=== PATIENT | male | born 1985 | race African-American/Black ===

== ENCOUNTER 2023-06-24 17:09 | Emergency (ER) | payer SELFPAY ==
[2023-06-24 20:25] VITALS: BP 105/60; RESP 18; TEMP 98.8; BMI 30.4
[2023-06-24 20:53] VITALS: PULSE 89
[2023-06-24] MEDS ORDERED: ALBUTEROL SO4 2.5/IPRATROPIUM 0.5 INH SOL 3 ML VIAL.NEB. NEB ONE ×2 (21:36)
[2023-06-24] MEDS ORDERED: predniSONE 20 MG TABLET (UD) PO ONE (22:10)
[2023-06-24] MEDS ORDERED: predniSONE 20 MG TABLET (UD) ONE (22:13)
== END 2023-06-24 22:20 | disposition home or self-care (01) ==
LOC: FER 17:09
PROC: 3E0F7GC Introduction of Other Therapeutic Substance into Respiratory Tract, Via Natural or Artificial Opening (ICD-10-PCS; principal; 2023-06-24)
DX: R06.02 Shortness of breath (principal); R06.2 Wheezing; R05.9 Cough, unspecified; J45.909 Unspecified asthma, uncomplicated; Z20.822 Contact with and (suspected) exposure to COVID-19
CPT/HCPCS: 0241U-QW; 99283-25

== ENCOUNTER 2023-07-10 14:58 | Inpatient (IN) | payer SELFPAY ==
[2023-07-10] MEDS ORDERED: methylPREDNISolone NA SUCC 125 MG/2 ML VIAL IVPUSH ONE (15:27)
[2023-07-10] MEDS ORDERED: MAGNESIUM SULF 50% (8.12 MEQ/2 ML-1 GM VIAL) IVPB ONE (15:27)
[2023-07-10] MEDS: ALBUTEROL SO4 2.5/IPRATROPIUM 0.5 INH SOL 3 ML VIAL.NEB. NEB SCH ×4 (15:30→16:30)
[2023-07-10] MEDS ORDERED: ALBUTEROL SO4 2.5/IPRATROPIUM 0.5 INH SOL 3 ML VIAL.NEB. NEB ONE (15:35)
[2023-07-10] MEDS ORDERED: methylPREDNISolone NA SUCC 125 MG/2 ML VIAL ONE (16:11)
[2023-07-10] MEDS ORDERED: MAGNESIUM SULFATE IN WATER 2 GM/50 ML IVPB IVPB ONE (16:12)
[2023-07-10 16:27] LABS: HEMATOCRIT 52.7 % (35.4-49); HEMOGLOBIN 17.3 G/dL (11.7-16.9); MCH 30.8 pg (25.7-33.7); MCHC 32.8 g/dl (32.0-35.9); MEAN CELL VOLUME 93.9 fl (80-96); MEAN PLT VOLUME 9.8 fl (7.5-11.1); PLATELET COUNT 238.3 10^3/uL (134-434); RBC 5.61 10^6/uL (4.00-5.60); RDW 14.7 % (11.9-15.9); WHITE BLOOD COUNT 6.2 10^3/uL (4.0-10.8)
[2023-07-10 16:32] LABS: INR 1.4 (0.83-1.09); PROTHROMBIN TIME (PATIENT) 16.2 SEC (9.7-13.0)
[2023-07-10 16:35] LABS: ACTIVATED PTT 28.9 SECONDS (25.2-36.5)
[2023-07-10 16:37] LABS: PLATELET ESTIMATE ADEQUATE
[2023-07-10 16:41] LABS: ALBUMIN 4.5 g/dl (3.4-5.0); ALK PHOS 95 U/L (45-117); ANION GAP 10 mmol/L (4-13); BILIRUBIN,TOTAL 0.7 mg/dl (0.2-1); CALCIUM 10.4 mg/dl (8.5-10.1); CHLORIDE 105 mmol/L (98-107); CO2 24 mmol/L (21-32); GLUCOSE,RANDOM 107 mg/dl (74-106); SGOT/AST 55 U/L (15-37); SGPT/ALT 97 U/L (7-52); SODIUM 139 mmol/L (136-145)
[2023-07-10 16:44] LABS: POTASSIUM 6.5 mmol/L (3.5-5.1)
[2023-07-10] MEDS ORDERED: SODIUM CHLORIDE 0.9% 500 ML INFUS.BAG IV ONE (17:14)
[2023-07-10 17:22] LABS: CALCIUM 9.7 mg/dl (8.5-10.1); CREATININE 0.9 mg/dl (0.6-1.3); POTASSIUM 5.1 mmol/L (3.5-5.1)
[2023-07-10 18:09] LABS: N-TERMINAL BNP 5635.7 pg/ml (5-125)
[2023-07-10] MEDS ORDERED: ALBUTEROL SO4 2.5/IPRATROPIUM 0.5 INH SOL 3 ML VIAL.NEB. NEB PRN (20:42)
[2023-07-10 21:41] VITALS: BMI 28.3
[2023-07-11] MEDS: methylPREDNISolone NA SUCC 40 MG/1 ML VIAL IVPUSH SCH ×4 (02:43→20:16)
[2023-07-11 08:58] LABS: CALCIUM 9.5 mg/dl (8.5-10.1); CREATININE 0.7 mg/dl (0.6-1.3); POTASSIUM 5.6 mmol/L (3.5-5.1)
[2023-07-11] MEDS: CEFTRIAXONE 500 MG in DEXTROSE 5%-WATER - 50 ML IVPB SCH (17:33)
[2023-07-11] MEDS: ALBUTEROL SO4 2.5/IPRATROPIUM 0.5 INH SOL 3 ML VIAL.NEB. NEB SCH ×2 (17:34→19:58)
[2023-07-11] MEDS: AZITHROMYCIN 500 MG TABLET PO SCH ×2 (17:35→17:36)
[2023-07-11] MEDS: SODIUM ZIRCONIUM CYCLOSILICATE (LOKELMA) 5 GM PACKET PO SCH (19:59)
[2023-07-11] MEDS: MONTELUKAST NA 10 MG TABLET PO SCH (21:30)
[2023-07-11] MEDS: BUDESONIDE/FORMETEROL FUMARATE 160/4.5 mcg INHALER IH SCH (21:36)
[2023-07-12] MEDS: methylPREDNISolone NA SUCC 40 MG/1 ML VIAL IVPUSH SCH ×4 (03:13→21:15)
[2023-07-12] MEDS: ENOXAPARIN NA (PORCINE) 40 MG/0.4 ML DISP.SYRIN SQ SCH (09:20)
[2023-07-12] MEDS: AZITHROMYCIN 500 MG TABLET PO SCH (09:21)
[2023-07-12] MEDS: ALBUTEROL SO4 2.5/IPRATROPIUM 0.5 INH SOL 3 ML VIAL.NEB. NEB SCH ×4 (09:21→21:14)
[2023-07-12] MEDS: SODIUM ZIRCONIUM CYCLOSILICATE (LOKELMA) 5 GM PACKET PO SCH (09:22)
[2023-07-12] MEDS: BUDESONIDE/FORMETEROL FUMARATE 160/4.5 mcg INHALER IH SCH ×2 (09:33→21:14)
[2023-07-12] MEDS: CEFTRIAXONE 500 MG in DEXTROSE 5%-WATER - 50 ML IVPB SCH (09:34)
[2023-07-12] MEDS: FUROSEMIDE 40 MG/4 ML INJECTABLE VIAL IVPUSH SCH (18:39)
[2023-07-12] MEDS: MONTELUKAST NA 10 MG TABLET PO SCH (21:15)
[2023-07-13] MEDS: methylPREDNISolone NA SUCC 40 MG/1 ML VIAL IVPUSH SCH ×4 (03:13→21:10)
[2023-07-13] MEDS: ALBUTEROL SO4 2.5/IPRATROPIUM 0.5 INH SOL 3 ML VIAL.NEB. NEB SCH ×4 (07:40→21:10)
[2023-07-13] MEDS: FUROSEMIDE 40 MG/4 ML INJECTABLE VIAL IVPUSH SCH (09:30)
[2023-07-13] MEDS: ENOXAPARIN NA (PORCINE) 40 MG/0.4 ML DISP.SYRIN SQ SCH (09:30)
[2023-07-13] MEDS: BUDESONIDE/FORMETEROL FUMARATE 160/4.5 mcg INHALER IH SCH ×2 (09:32→21:11)
[2023-07-13] MEDS: AZITHROMYCIN 500 MG TABLET PO SCH (09:34)
[2023-07-13] MEDS: CEFTRIAXONE 500 MG in DEXTROSE 5%-WATER - 50 ML IVPB SCH (11:00)
[2023-07-13] MEDS: MONTELUKAST NA 10 MG TABLET PO SCH (21:10)
[2023-07-14] MEDS: methylPREDNISolone NA SUCC 40 MG/1 ML VIAL IVPUSH SCH ×3 (03:03→17:21)
[2023-07-14 08:14] LABS: HEMATOCRIT 52.9 % (35.4-49); HEMOGLOBIN 16.7 G/dL (11.7-16.9); MCHC 31.5 g/dl (32.0-35.9); MEAN CELL VOLUME 95.1 fl (80-96); MEAN PLT VOLUME 9.4 fl (7.5-11.1); PLATELET COUNT 210.6 10^3/uL (134-434); RBC 5.56 10^6/uL (4.00-5.60); RDW 14.7 % (11.9-15.9); WHITE BLOOD COUNT 11.4 10^3/uL (4.0-10.8)
[2023-07-14 08:33] LABS: ALBUMIN 3.8 g/dl (3.4-5.0); BILIRUBIN,TOTAL 0.3 mg/dl (0.2-1); CALCIUM 9.7 mg/dl (8.5-10.1); CREATININE 0.7 mg/dl (0.6-1.3); MAGNESIUM 2.2 mg/dL (1.8-2.4); POTASSIUM 5.1 mmol/L (3.5-5.1)
[2023-07-14 09:28] LABS: N-TERMINAL BNP 1734.3 pg/ml (5-125)
[2023-07-14] MEDS: ALBUTEROL SO4 2.5/IPRATROPIUM 0.5 INH SOL 3 ML VIAL.NEB. NEB SCH ×4 (09:42→21:25)
[2023-07-14] MEDS: BUDESONIDE/FORMETEROL FUMARATE 160/4.5 mcg INHALER IH SCH ×2 (09:43→21:29)
[2023-07-14] MEDS: FUROSEMIDE 40 MG/4 ML INJECTABLE VIAL IVPUSH SCH (09:43)
[2023-07-14] MEDS: CEFTRIAXONE 500 MG in DEXTROSE 5%-WATER - 50 ML IVPB SCH (09:44)
[2023-07-14] MEDS: ENOXAPARIN NA (PORCINE) 40 MG/0.4 ML DISP.SYRIN SQ SCH (09:44)
[2023-07-14] MEDS ORDERED: FAMOTIDINE 20 MG TABLET PO SCH (10:00)
[2023-07-14] MEDS ORDERED: SODIUM ZIRCONIUM CYCLOSILICATE (LOKELMA) 5 GM PACKET PO SCH (14:15)
[2023-07-14] MEDS: MONTELUKAST NA 10 MG TABLET PO SCH (21:25)
[2023-07-14 22:38] VITALS: RESP 17
[2023-07-15 00:23] VITALS: BP 118/70; PULSE 62; TEMP 97.8
== END 2023-07-15 11:54 | disposition short-term general hospital (02) | DRG 194 ==
LOC: FER 14:58 → FM/S 18:41
PROVIDERS: ADMIT Internal Medicine; ATTEND Family Medicine
DX: I11.0 Hypertensive heart disease with heart failure (principal); I50.813 Acute on chronic right heart failure; J45.909 Unspecified asthma, uncomplicated; I27.81 Cor pulmonale (chronic); E87.5 Hyperkalemia; J47.9 Bronchiectasis, uncomplicated; J84.9 Interstitial pulmonary disease, unspecified; I47.20 Ventricular tachycardia, unspecified; I27.20 Pulmonary hypertension, unspecified
CPT/HCPCS: 0241U-QW; 36415; 71275-TC; 80048; 80053; 82550; 82553; 83735; 83880; 84132; 84484; 85027; 85610; 85730; 86038; 86431; 87070; 87186; 87205; 87635; 87899; 93005; 93306-TC; 94640; 94761; 99291

== ENCOUNTER 2024-04-03 17:42 | Emergency (ER) | payer OTHER ==
[2024-04-03 17:56] VITALS: BP 103/60; PULSE 70; RESP 16; TEMP 98.1; BMI 29.0
[2024-04-03 19:59] LABS: HEMATOCRIT 50.1 % (35.4-49); HEMOGLOBIN 16.3 G/dL (11.7-16.9); MCHC 32.5 g/dl (32.0-35.9); MEAN CELL VOLUME 95.5 fl (80-96); MEAN PLT VOLUME 8.5 fl (7.5-11.1); PLATELET COUNT 206.4 10^3/uL (134-434); RBC 5.25 10^6/uL (4.00-5.60); RDW 14.1 % (11.9-15.9); WHITE BLOOD COUNT 4.6 10^3/uL (4.0-10.8)
[2024-04-03 20:10] LABS: PLATELET ESTIMATE ADEQUATE
[2024-04-03 20:59] LABS: ALBUMIN 4.4 g/dl (3.4-5.0); BILIRUBIN,TOTAL 0.7 mg/dl (0.2-1); CALCIUM 9.6 mg/dl (8.5-10.1); CREATININE 0.9 mg/dl (0.6-1.3); MAGNESIUM 1.9 mg/dL (1.8-2.4); TOT PROT 6.4 g/dl (6.4-8.2)
[2024-04-03 21:13] LABS: VENOUS O2 SATURATION 54.9 % (70-80); VENOUS PH 7.366 (7.310-7.410)
== END 2024-04-03 23:36 | disposition home or self-care (01) ==
LOC: FER 17:42
DX: S60.051A Contusion of right little finger without damage to nail, initial encounter (principal); J84.9 Interstitial pulmonary disease, unspecified; R05.9 Cough, unspecified; X58.XXXA Exposure to other specified factors, initial encounter
CPT/HCPCS: 36415; 71046-TC-FY; 71275-TC; 80053; 82550; 82553; 82803; 83735; 84484; 85027; 85379; 93005; 99285-25; Q9967